=== PATIENT | female | born 2000 | race Caucasian/White ===

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

== ENCOUNTER 2021-06-06 17:16 | Emergency (ER) | payer OTHER ==
[2021-06-06 17:27] VITALS: RESP 18
[2021-06-06 18:09] LABS: Basophils % (A) 1 %; Eosinophils # (A) 0.1 k/uL (0-0.7); Eosinophils % (A) 1 %; HCT 36.4 % (34.0-46.0); HGB 12.5 gm/dL (11.4-16.0); Lymphocytes # (A) 1.5 k/uL (1.0-4.8); Lymphocytes % (A) 20 %; MCH 29.4 pg (25.0-35.0); MCHC 34.3 g/dL (31.0-37.0); MCV 85.7 fL (80.0-100.0); Mean Platelet Volume 7.3; Monocytes # (A) 0.3 k/uL (0-1.0); Monocytes % (A) 5 %; Neutrophils # (A) 5.2 k/uL (1.3-7.7); Neutrophils % (A) 72 %; Platelet Count 290 k/uL (150-450); RBC 4.25 m/uL (3.80-5.40); RDW 14.9 % (11.5-15.5); WBC 7.3 k/uL (4.0-11.0)
[2021-06-06 18:14] LABS: Appearance,Urine Clear (Clear); Bacteria,Urine Rare /hpf; Bilirubin,Urine Negative (Negative); Blood,Urine Moderate (Negative); Color,Urine Colorless; Glucose,Urine (UA) Negative (Negative); Ketones,Urine Negative (Negative); Leukocyte Esterase,Urine Moderate (Negative); Nitrite,Urine Negative (Negative); PH, Urine 6.5 (5.0-8.0); Protein,Urine Negative (Negative); RBC,Urine <1 /hpf (0-5); Urobilinogen,Urine <2.0 mg/dL (<2.0); WBC,Urine 3 /hpf (0-5)
[2021-06-06 18:18] LABS: ALT 9 U/L (4-34); AST 19 U/L (14-36); African American GFR (CKD) >90 (>60 ml/min/1.73 sqM); Albumin 4.3 g/dL (3.5-5.0); Alkaline Phosphatase 43 U/L (38-126); Anion Gap 11 mmol/L; Blood Urea Nitrogen 8 mg/dL (7-17); Calcium 9.6 mg/dL (8.4-10.2); Carbon Dioxide 22 mmol/L (22-30); Chloride 103 mmol/L (98-107); Glucose 111 mg/dL (74-99); Non-African American GFR(CKD) >90 (>60 ml/min/1.73 sqM); Potassium 3.5 mmol/L (3.5-5.1); Sodium 136 mmol/L (137-145); Total Bilirubin 0.5 mg/dL (0.2-1.3)
--- NOTE | 2021-06-06 18:19 | ED ---
Female Urogenital HPI - General Chief complaint: Vaginal Bleeding Stated complaint: Vaginal Bleeding, 7 wks Time Seen by Provider: 06/06/21 17:28 Source: patient, family Mode of arrival: ambulatory Limitations: no limitations - History of Present Illness Initial comments: Patient is a 21-year-old female, currently 8 weeks , presenting to the emergency Department with complaints of abdominal cramping for the last 4-5 days. She's also had some very mild spotting for the past 2 days. She had a positive home test about 2 weeks ago. This is her first , she will go see Dr. Galarza. She denies any recent fevers or chills, no chest pain or shortness of breath. She is complaining of some mild dysuria as well. Patient has no further complaints at this time. Her vital signs are stable. - Related Data Previous Rx's Medication Instructions Recorded EPINEPHrine (Auto Inject) [Epipen] 0.3 mg IM ONCE PRN #1 pen 11/27/18 Famotidine [Pepcid] 20 mg PO BID #28 tablet 11/27/18 diphenhydrAMINE [Benadryl] 50 mg PO QID PRN #20 capsule 11/27/18 predniSONE 50 mg PO DAILY #5 tab 11/27/18 EPINEPHrine [Epipen 2-Shan] 0.3 mg IM ONCE PRN #1 pack 05/14/19 predniSONE 50 mg PO DAILY #5 tab 05/14/19 methylPREDNISolone [Medrol Dose 4 mg PO DIRECTED #1 pack 11/03/19 Pack] Allergies Allergy/AdvReac Type Severity Reaction Status Date / Time peanut Allergy Severe Anaphylaxis Verified 06/06/21 17:24 shellfish derived Allergy Severe Anaphylaxis Verified 06/06/21 17:24 venom-honey bee Allergy Severe Anaphylaxis Verified 06/06/21 17:24 [bee venom (honey bee)] Iodinated Contrast Media Allergy Unknown Verified 06/06/21 17:24 [Iodinated Contrast- Oral and IV Dye] lactose AdvReac Intermediate Nausea & Verified 06/06/21 17:24 Vomiting & Diarrhea milk AdvReac Intermediate Nausea Verified 06/06/21 17:24 Review of Systems ROS Statement: Those systems with pertinent positive or pertinent negative responses have been documented in the HPI. ROS Other: All systems not noted in ROS Statement are negative. 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, life threatening allergies History of Any Multi-Drug Resistant Organisms: None Reported Past Surgical History: Adenoidectomy, Tonsillectomy Additional Past Surgical History / Comment(s): wisdom tooth removal Past Anesthesia/Blood Transfusion Reactions: No Reported Reaction Past Psychological History: Anxiety Smoking Status: Current every day smoker Past Alcohol Use History: None Reported Past Drug Use History: None Reported - Past Family History Mother Family Medical History: No Reported History Father Family Medical History: No Reported History General Exam - General Exam Comments Initial Comments: GENERAL: Patient is well-developed and well-nourished. Patient is nontoxic and in no acute distress. HEAD: Atraumatic, normocephalic. EYES: Pupils equal round and reactive to light, extraocular movements intact, sclera anicteric, conjunctiva are normal. Eyelids were unremarkable. ENT: Nares patent, oropharynx clear without exudates. Moist mucous membranes. NECK: Normal range of motion, supple without lymphadenopathy or JVD. LUNGS: Unlabored respirations. Breath sounds clear to auscultation bilaterally and equal. No wheezes rales or rhonchi. HEART: Regular rate and rhythm without murmurs, rubs or gallops. ABDOMEN: Soft, nontender, normoactive bowel sounds. No guarding, no rebound. No masses appreciated. : Deferred MUSCULOSKELETAL: Normal extremities with adequate strength and normal range of motion, no pitting or edema. No clubbing or cyanosis. NEUROLOGICAL: Patient is alert and oriented x 3. SKIN: Warm, Dry, normal turgor, no rashes or lesions noted. Limitations: no limitations Course Vital Signs 06/06/21 06/06/21 17:24 20:29 Temperature 98.5 F 98.6 F Pulse Rate 92 75 Respiratory 18 18 Rate Blood Pressure 103/68 102/62 O2 Sat by Pulse 99 98 Oximetry Medical Decision Making - Medical Decision Making Patient is a 21-year-old female, currently 7 weeks , first , presenting with abdominal cramping over the past 4-5 days and one day of vaginal spotting. Her vital signs are stable. She will be going to see Dr. Gaalrza as her MASTER BAKER. Labs show a normal white count, stable hemoglobin, hCG Quant is 60,000 and, urine shows some blood, no signs of infection. Ultrasound shows a living intrauterine fetus, tiny subchorionic fluid collection measures 4 mm in thickness. Patient's vital signs remained stable. Her blood type is O-, she did receive RhoGAM injection today. She is stable for discharge. She'll follow up with her MASTER BAKER. Return parameters were discussed with her and she verbalized understanding. Case discussed with Dr. Kumar. - Lab Data Result diagrams: 06/06/21 18:04 06/06/21 18:04 Lab Results 06/06/21 06/06/21 06/06/21 Range/Units 18:00 18:04 18:04 WBC 7.3 (4.0-11.0) k/uL RBC 4.25 (3.80-5.40) m/uL Hgb 12.5 (11.4-16.0) gm/dL Hct 36.4 (34.0-46.0) % MCV 85.7 (80.0-100.0) fL MCH 29.4 (25.0-35.0) pg MCHC 34.3 (31.0-37.0) g/dL RDW 14.9 (11.5-15.5) % Plt Count 290 (150-450) k/uL MPV 7.3 Neutrophils % 72 % Lymphocytes % 20 % Monocytes % 5 % Eosinophils % 1 % Basophils % 1 % Neutrophils # 5.2 (1.3-7.7) k/uL Lymphocytes # 1.5 (1.0-4.8) k/uL Monocytes # 0.3 (0-1.0) k/uL Eosinophils # 0.1 (0-0.7) k/uL Basophils # 0.0 (0-0.2) k/uL Sodium (137-145) mmol/L Potassium (3.5-5.1) mmol/L Chloride (98-107) mmol/L Carbon Dioxide (22-30) mmol/L Anion Gap mmol/L BUN (7-17) mg/dL Creatinine (0.52-1.04) mg/dL Est GFR (CKD-EPI)AfAm (>60 ml/min/1.73 sqM) Est GFR (CKD-EPI)NonAf (>60 ml/min/1.73 sqM) Glucose (74-99) mg/dL Calcium (8.4-10.2) mg/dL Total Bilirubin (0.2-1.3) mg/dL AST (14-36) U/L ALT (4-34) U/L Alkaline Phosphatase (38-126) U/L Total Protein (6.3-8.2) g/dL Albumin (3.5-5.0) g/dL HCG, Quant mIU/mL Urine Color Colorless Urine Appearance Clear (Clear) Urine pH 6.5 (5.0-8.0) Ur Specific [place] 1.000 L (1.001-1.035) Urine Protein Negative (Negative) Urine Glucose (UA) Negative (Negative) Urine Ketones Negative (Negative) Urine Blood Moderate H (Negative) Urine Nitrite Negative (Negative) Urine Bilirubin Negative (Negative) Urine Urobilinogen <2.0 (<2.0) mg/dL Ur Leukocyte Esterase Moderate H (Negative) Urine RBC <1 (0-5) /hpf Urine WBC 3 (0-5) /hpf Urine Bacteria Rare H (None) /hpf Blood Type O Negative Blood Type Recheck No Previous Record Bld Type Recheck Status [facility] ONLY 06/06/21 Range/Units 18:04 WBC (4.0-11.0) k/uL RBC (3.80-5.40) m/uL Hgb (11.4-16.0) gm/dL Hct (34.0-46.0) % MCV (80.0-100.0) fL MCH (25.0-35.0) pg MCHC (31.0-37.0) g/dL RDW (11.5-15.5) % Plt Count (150-450) k/uL MPV Neutrophils % % Lymphocytes % % Monocytes % % Eosinophils % % Basophils % % Neutrophils # (1.3-7.7) k/uL Lymphocytes # (1.0-4.8) k/uL Monocytes # (0-1.0) k/uL Eosinophils # (0-0.7) k/uL Basophils # (0-0.2) k/uL Sodium 136 L (137-145) mmol/L Potassium 3.5 (3.5-5.1) mmol/L Chloride 103 (98-107) mmol/L Carbon Dioxide 22 (22-30) mmol/L Anion Gap 11 mmol/L BUN 8 (7-17) mg/dL Creatinine 0.57 (0.52-1.04) mg/dL Est GFR (CKD-EPI)AfAm >90 (>60 ml/min/1.73 sqM) Est GFR (CKD-EPI)NonAf >90 (>60 ml/min/1.73 sqM) Glucose 111 H (74-99) mg/dL Calcium 9.6 (8.4-10.2) mg/dL Total Bilirubin 0.5 (0.2-1.3) mg/dL AST 19 (14-36) U/L ALT 9 (4-34) U/L Alkaline Phosphatase 43 (38-126) U/L Total Protein 7.0 (6.3-8.2) g/dL Albumin 4.3 (3.5-5.0) g/dL HCG, Quant 18352.5 mIU/mL Urine Color Urine Appearance (Clear) Urine pH (5.0-8.0) Ur Specific [place] (1.001-1.035) Urine Protein (Negative) Urine Glucose (UA) (Negative) Urine Ketones (Negative) Urine Blood (Negative) Urine Nitrite (Negative) Urine Bilirubin (Negative) Urine Urobilinogen (<2.0) mg/dL Ur Leukocyte Esterase (Negative) Urine RBC (0-5) /hpf Urine WBC (0-5) /hpf Urine Bacteria (None) /hpf Blood Type Blood Type Recheck Bld Type Recheck Status Disposition Clinical Impression: Subchorionic hemorrhage in first trimester Disposition: HOME SELF-CARE Condition: Stable Instructions (If sedation given, give patient instructions): Subchorionic Hemorrhage (ED) Additional Instructions: Please return to the Emergency Department if symptoms worsen or any other concerns. Please follow up with your MASTER BAKER. Recommend pelvic rest until your follow-up, no intercourse, no heavy lifting. Is patient prescribed a controlled substance at d/c from ED?: No Referrals: Chetan Galvez DO [Primary Care Provider] - 1-2 days Keshav Galarza DO [Doctor of Osteopathic Medicine] - 1-2 days Time of Disposition: 19:31
--- NOTE | 2021-06-06 19:04 | US ---
EXAMINATION TYPE: Transabdominal DATE OF EXAM: 06/06/2021 6:40 PM COMPARISON: NONE CLINICAL HISTORY: 7 wks preg, cramping/spotting. Ec patient stated 2 days ago had pink tinged small a mount of vaginal bleeding and cramping and today noted small amount of brown vaginal discharge; ; patient stated she vapes EXAM PERFORMED: Transabdominal (TA) EXAM MEASUREMENTS: GESTATIONAL AGE / DATING Physician Established: Not yet established Dates by LMP: (7 weeks/2 days) EDC: 01/21/2022 Dates by First Scan: No previous. Dates by Current Scan for: (5 weeks/6 days) by CRL measure EDC: 01/31/2022 MATERNAL ANATOMY Uterus: 9.3 x 5.9 x 4.5cm Right Ovary: 2.6 x 2.8 x 1.8cm Left Ovary: 1.1 x 1.6 x 2.5cm Post CDS / Adnexa: wnl Presence of free fluid: no Presence of corpus luteal cyst: in right ovary = 2.1 x 1.8 x 1.4cm Presence of subchorionic bleed: small hypoechoic area seen lateral to gestational sac = 0.8 x 0.4 x 1 .4cm GESTATION / SURVEY CRL: 0.3cm (5 weeks/6 day Yolk Sac (normal less than 6mm): 2.9mm Heart Rate: 104 bpm Rhythm: Normal IUP: Single Date of LMP: 04/16/2021 Beta HcG (if available): NA Single, early, live IUP = 5 weeks/6 days by CRL measure; EDC: 01/31/2022; [id number]; small subchorioni c bleed also noted. IMPRESSION: Living intrauterine fetus. Tiny subchorionic fluid collection measures 4 mm in thickness and could be minimal perigestational hemorrhage.
[2021-06-06 19:07] LABS: HCG,Quantitative Serum 60984.5 mIU/mL
[2021-06-06] MEDS ORDERED: Rhogam IMMUNE GLOBULIN 1,500 UNIT/1 ML IM ONE (19:08)
[2021-06-06 20:29] VITALS: BP 102/62; PULSE 75; TEMP 98.6
== END 2021-06-06 21:25 | disposition home or self-care (01) ==
LOC: EC 17:16
DX: O20.8 Other hemorrhage in early pregnancy (principal); O99.511 Diseases of the respiratory system complicating pregnancy, first trimester; J45.909 Unspecified asthma, uncomplicated; O99.331 Smoking (tobacco) complicating pregnancy, first trimester; F17.200 Nicotine dependence, unspecified, uncomplicated; Z79.52 Long term (current) use of systemic steroids; Z79.899 Other long term (current) drug therapy; Z3A.08 8 weeks gestation of pregnancy
CPT/HCPCS: 36415; 86900; 86901; 80053; 85025; 86850; 81001; 84702; 76801; 96372; 99284; J2790

== ENCOUNTER → 2021-06-15 | Outpatient (CLI) | payer OTHER ==
--- NOTE | 2021-06-15 10:58 | US ---
EXAMINATION TYPE: Transabdominal DATE OF EXAM: 06/15/2021 10:40 AM COMPARISON: NONE CLINICAL HISTORY: O46.91 bleeding. no more bleeding, early OB, was seen in EC 9 days prior and saw po ssible subchorionic bleed EXAM PERFORMED: OBTA EXAM MEASUREMENTS: GESTATIONAL AGE / DATING Physician Established: Not yet established Dates by LMP: ( 6 weeks/0 days) EDC: 01/21/2022 Dates by First Scan: (7 weeks/2 days) EDC: 01/30/2022 Dates by Current Scan for: (7 weeks/2 days) EDC: 01/30/2022 MATERNAL ANATOMY Uterus: 11.3 x 6.2 x 3.8cm Right Ovary: 3.1 x 1.9 x 1.5cm Left Ovary: 2.5 x 1.5 x 1.8cm Post CDS / Adnexa: wnl Presence of free fluid: no Presence of corpus luteal cyst: not seen Presence of subchorionic bleed: not seen GESTATION / SURVEY CRL: 1.1cm (7 weeks/2 days) MSD: wnl Yolk Sac (normal less than 6mm): 0.2cm Heart Rate: 134bpm Rhythm: Normal IUP: Viable IUP Date of LMP: 04/16/2021 IMPRESSION: Single viable intrauterine .
[2021-06-15 11:03] LABS: HCT 41.1 % (34.0-46.0); HGB 13.7 gm/dL (11.4-16.0); MCH 28.7 pg (25.0-35.0); MCHC 33.4 g/dL (31.0-37.0); MCV 85.8 fL (80.0-100.0); Mean Platelet Volume 7.4; Platelet Count 296 k/uL (150-450); RBC 4.79 m/uL (3.80-5.40); RDW 13.9 % (11.5-15.5); WBC 6.4 k/uL (4.0-11.0)
[2021-06-15 11:17] LABS: African American GFR (CKD) >90 (>60 ml/min/1.73 sqM); Glucose 82 mg/dL (74-99); Non-African American GFR(CKD) >90 (>60 ml/min/1.73 sqM)
[2021-06-15 18:07] LABS: Hepatitis B Surface Antigen Non-Reactive (Non-Reactive)
[2021-06-15 19:57] LABS: HIV 2 AB Non-Reactive (Non-Reactive); HIV AB P24 Non-Reactive (Non-Reactive); HIV P24 AG Non-Reactive (Non-Reactive)
[2021-06-16 06:19] LABS: Toxoplasma Antibody (IgG) <3.0 IU/mL (<7.2); Toxoplasma Antibody (IgM) <3.0 AU/mL (<8.0)
== END | disposition home or self-care (01) ==
LOC: RADUSWWP 10:20
PROVIDERS: ATTEND Obstetrics & Gynecology
DX: O46.91 Antepartum hemorrhage, unspecified, first trimester (principal)
CPT/HCPCS: 36415; 76801; 82565; 82947; 85027; 86762; 86777; 86778; 86780; 86850; 86870; 86880; 86900; 86901; 87340; 87390

== ENCOUNTER 2021-07-20 14:06 | Emergency (ER) | payer OTHER ==
[2021-07-20 14:49] VITALS: BP 125/86; PULSE 96; RESP 20; TEMP 98.5
[2021-07-20 15:11] LABS: Appearance,Urine Clear (Clear); Bacteria,Urine Rare /hpf; Bilirubin,Urine Negative (Negative); Blood,Urine Negative (Negative); Color,Urine Colorless; Glucose,Urine (UA) Negative (Negative); Ketones,Urine Negative (Negative); Leukocyte Esterase,Urine Trace (Negative); Nitrite,Urine Negative (Negative); PH, Urine 6.5 (5.0-8.0); Protein,Urine Negative (Negative); RBC,Urine <1 /hpf (0-5); Specific Gravity,Urine 1.002 (1.001-1.035); Squamous Epithelial Cell,Urine 5 /hpf (0-4); Urobilinogen,Urine <2.0 mg/dL (<2.0); WBC,Urine 2 /hpf (0-5)
--- NOTE | 2021-07-20 18:52 | US ---
EXAMINATION TYPE: Transabdominal DATE OF EXAM: 07/20/2021 COMPARISON: US CLINICAL HISTORY: vaginal cramping. Cramping. . EXAM PERFORMED: Transabdominal (TA) EXAM MEASUREMENTS: GESTATIONAL AGE / DATING Physician Established: (12 weeks/2 days) EDC: 01/30/2022 Dates by LMP: (13 weeks/4 days) EDC: 01/21/2022 Dates by First Scan: (12 weeks/2 days) EDC: 01/30/2022 Dates by Current Scan for: (12 weeks/5 days) EDC: 01/27/2022 MATERNAL ANATOMY Uterus: 13.8 x 9.1 x 6.8 cm. Anteverted. Right Ovary: 3.3 x 2.6 x 1.6 cm. Left Ovary: Not visualized. Post CDS / Adnexa: Appear wnl. Presence of free fluid: None seen. Presence of corpus luteal cyst: Not seen. Presence of subchorionic bleed: Hypoechoic area seen inferior to the gestational sac: 0.5 x 3.2 x 1.9 cm. Complex area seen adjacent to the gestational sac on the left: 1.1 x 0.9 x 1.2 cm. GESTATION / SURVEY CRL: 6.35 cm. (12 weeks/5 days) Yolk Sac (normal less than 6mm): 6.2 mm. Measures slightly enlarged. Heart Rate: 158 bpm Rhythm: Normal IUP: Viable IUP Nuchal Translucency 10-14wks (normal less than 3mm): Not clearly visualized. Date of LMP: 04/16/2021 Beta HcG (if available): Not available. IMPRESSION: Single live intrauterine at estimated 12 weeks 5 days gestational age. Small subchorionic hemorrhage. Otherwise no acute abnormality.
--- NOTE | 2021-07-20 20:02 | ED ---
General Adult HPI - General Chief complaint: Abdominal Pain Stated complaint: 13 Weeks exposed to RSV and HFM Time Seen by Provider: 07/20/21 16:28 Source: patient Mode of arrival: ambulatory Limitations: no limitations - History of Present Illness Initial comments: 21-year-old previously healthy female presents emergency room with reported cou gh and congestion for the past several weeks. Patient is currently 13 weeks . 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 She called her OB did tell him this and he requested that she come into the emergency department for Parvo B-[address] Galarza. She has had 2 ultrasounds. She did have some bleeding in early for which she had an ultrasound performed and showed a subchorionic hemorrhage. This is her first . She admits to some current suprapubic abdominal pain however no active bleeding. Has had some mild white discharge without odor. Denies concern for sexually transmitted infections. Patient is O- and was given RhoGAM on the . States she had a repeat ultrasound which showed a normal . She denies any chest pain. Has not been taking any medications for her cold. Denies any fevers. Other alleviating, precipitating or modifying factors - Related Data Home Medications Medication Instructions Recorded Confirmed No Known Home Medications 07/20/21 07/20/21 Allergies Allergy/AdvReac Type Severity Reaction Status Date / Time peanut Allergy Severe Anaphylaxis Verified 08/10/21 19:58 shellfish derived Allergy Severe Anaphylaxis Verified 08/10/21 19:58 venom-honey bee Allergy Severe Anaphylaxis Verified 08/10/21 19:58 [bee venom (honey bee)] Iodinated Contrast Media Allergy Unknown Verified 08/10/21 19:58 [Iodinated Contrast- Oral and IV Dye] lactose AdvReac Intermediate Nausea & Verified 08/10/21 19:58 Vomiting & Diarrhea milk AdvReac Intermediate Nausea Verified 08/10/21 19:58 Review of Systems ROS Statement: Those systems with pertinent positive or pertinent negative responses have been documented in the HPI. ROS Other: All systems not noted in ROS Statement are negative. 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, life threatening allergies History of Any Multi-Drug Resistant Organisms: None Reported Past Surgical History: Adenoidectomy, Tonsillectomy Additional Past Surgical History / Comment(s): wisdom tooth removal Past Anesthesia/Blood Transfusion Reactions: No Reported Reaction Past Psychological History: Anxiety Smoking Status: Current every day smoker Past Alcohol Use History: None Reported Past Drug Use History: None Reported - Past Family History Mother Family Medical History: No Reported History Father Family Medical History: No Reported History General Exam Limitations: no limitations General appearance: alert, in no apparent distress Head exam: Present: atraumatic, normocephalic, normal inspection Eye exam: Present: normal appearance, PERRL, EOMI. Absent: scleral icterus, conjunctival injection, periorbital swelling ENT exam: Present: normal exam, mucous membranes moist Neck exam: Present: normal inspection. Absent: tenderness, meningismus, lymphadenopathy Respiratory exam: Present: normal lung sounds bilaterally. Absent: respiratory distress, wheezes, rales, rhonchi, stridor Cardiovascular Exam: Present: regular rate, normal rhythm, normal heart sounds. Absent: systolic murmur, diastolic murmur, rubs, gallop, clicks GI/Abdominal exam: Present: soft, normal bowel sounds. Absent: distended, tenderness, guarding, rebound, rigid External exam: Present: normal external exam Speculum exam: Present: normal speculum exam. Absent: vaginal bleeding Extremities exam: Present: normal inspection, full ROM, normal capillary refill. Absent: tenderness, pedal edema, joint swelling, calf tenderness Back exam: Present: normal inspection Neurological exam: Present: alert, oriented X3, CN II-XII intact Psychiatric exam: Present: normal affect, normal mood Skin exam: Present: warm, dry, intact, normal color. Absent: rash Course Vital Signs 07/20/21 14:46 Temperature 98.5 F Pulse Rate 96 Respiratory 20 Rate Blood Pressure 125/86 O2 Sat by Pulse 99 Oximetry Medical Decision Making - Medical Decision Making Upon arrival patient was placed into room 33. Thorough history and physical exam was performed. Patient was swabbed for Covid which is negative. She does give a urine sample which is negative for infection at this time. ultrasound was performed which demonstrates a 12 week 5 day with a adjacent subchorionic hemorrhage which appears stable. Pelvic exam is performed which does not demonstrate any vaginal bleeding. Mild white vaginal discharge not consistent with yeast. Patient does have parvo B19 titers ordered as this was requested by her BRASS POURER. She will be discharged home and is to follow-up with her BR[employer] P[employer]ER. Return to the emergency room for any worsening symptoms. Patient was discharged home in stable condition - Lab Data Lab Results 07/20/21 07/20/21 07/20/21 Range/Units 14:52 14:52 17:30 Urine Color Colorless Urine Appearance Clear (Clear) Urine pH 6.5 (5.0-8.0) Ur Specific [place] 1.002 (1.001-1.035) Urine Protein Negative (Negative) Urine Glucose (UA) Negative (Negative) Urine Ketones Negative (Negative) Urine Blood Negative (Negative) Urine Nitrite Negative (Negative) Urine Bilirubin Negative (Negative) Urine Urobilinogen <2.0 (<2.0) mg/dL Ur Leukocyte Esterase Trace H (Negative) Urine RBC <1 (0-5) /hpf Urine WBC 2 (0-5) /hpf Ur Squamous Epith Cells 5 H (0-4) /hpf Urine Bacteria Rare H (None) /hpf Coronavirus (PCR) Not Detected (Not Detectd) Parvovirus B19 IgG Ab 3.61 H (<=0.90) INDEX Parvovirus B19 IgM Ab 0.77 (<=0.90) INDEX Disposition Clinical Impression: Pelvic pain, First trimester Disposition: HOME SELF-CARE Condition: Stable Instructions (If sedation given, give patient instructions): First Trimester (ED) Additional Instructions: Please follow with Dr. Galarza for your test results. Return to the ED for any new or worsening symptoms. you may take benadryl or claritin for your symptoms. Is patient prescribed a controlled substance at d/c from ED?: No Referrals: Chetan Galvez DO [Primary Care Provider] - 1-2 days Keshav Galarza DO [Doctor of Osteopathic Medicine] - 1-2 days Time of Disposition: 20:02
[2021-07-23 10:30] LABS: Parvovirus B-19 IgG Antibodies 3.61 INDEX (<=0.90)
[2021-07-27 11:26] LABS: Parvovirus B-19 IgM Antibodies 0.77 INDEX (<=0.90)
== END 2021-07-20 20:06 | disposition home or self-care (01) ==
LOC: EC 14:06
DX: O26.891 Other specified pregnancy related conditions, first trimester (principal); O99.511 Diseases of the respiratory system complicating pregnancy, first trimester; R05.9 Cough, unspecified; O20.8 Other hemorrhage in early pregnancy; J45.909 Unspecified asthma, uncomplicated; F41.9 Anxiety disorder, unspecified; F17.200 Nicotine dependence, unspecified, uncomplicated; Z3A.12 12 weeks gestation of pregnancy; Z91.010 Allergy to peanuts; Z91.011 Allergy to milk products; Z91.041 Radiographic dye allergy status; Z90.89 Acquired absence of other organs; Z20.822 Contact with and (suspected) exposure to COVID-19
CPT/HCPCS: 36415; 76801; 81001; 86747; 87635; 99284

== ENCOUNTER 2021-08-10 18:02 | Emergency (ER) | payer OTHER ==
[2021-08-10] MEDS ORDERED: ACETAMINOPHEN TAB 325 MG TAB PO STA (21:40)
--- NOTE | 2021-08-10 21:55 | ED ---
URI HPI - General Chief Complaint: ENT Stated Complaint: Sore Throat, 15 wks Preg Time Seen by Provider: 08/10/21 21:23 Source: patient, family Mode of arrival: ambulatory Limitations: no limitations - History of Present Illness MD Complaint: cough, sore throat, rhinorrhea, nasal congestion Onset/Timin -: week(s) Severity: moderate Consistency: constant Improves With: nothing Worsens With: nothing Context: sick contacts Associated Symptoms: nasal congestion, sore throat, cough, ear pain Treatments Prior to Arrival: none - Related Data Home Medications Medication Instructions Recorded Confirmed No Known Home Medications 07/20/21 07/20/21 Allergies Allergy/AdvReac Type Severity Reaction Status Date / Time peanut Allergy Severe Anaphylaxis Verified 08/10/21 19:58 shellfish derived Allergy Severe Anaphylaxis Verified 08/10/21 19:58 venom-honey bee Allergy Severe Anaphylaxis Verified 08/10/21 19:58 [bee venom (honey bee)] Iodinated Contrast Media Allergy Unknown Verified 08/10/21 19:58 [Iodinated Contrast- Oral and IV Dye] lactose AdvReac Intermediate Nausea & Verified 08/10/21 19:58 Vomiting & Diarrhea milk AdvReac Intermediate Nausea Verified 08/10/21 19:58 Review of Systems ROS Statement: Those systems with pertinent positive or pertinent negative responses have been documented in the HPI. ROS Other: All systems not noted in ROS Statement are negative. Constitutional: Denies: fever, chills Eyes: Denies: eye pain, vision change ENT: Reports: ear pain, throat pain, congestion. Denies: hearing loss Respiratory: Reports: cough. Denies: dyspnea, wheezes, hemoptysis Cardiovascular: Denies: chest pain Gastrointestinal: Denies: abdominal pain, vomiting, diarrhea Genitourinary: Denies: dysuria, hematuria, discharge Musculoskeletal: Denies: back pain Skin: Denies: rash Neurological: Reports: headache 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, life threatening allergies History of Any Multi-Drug Resistant Organisms: None Reported Past Surgical History: Adenoidectomy, Tonsillectomy Additional Past Surgical History / Comment(s): wisdom tooth removal Past Anesthesia/Blood Transfusion Reactions: No Reported Reaction Past Psychological History: Anxiety Smoking Status: Current every day smoker Past Alcohol Use History: None Reported Past Drug Use History: None Reported - Past Family History Mother Family Medical History: No Reported History Father Family Medical History: No Reported History General Exam Limitations: no limitations General appearance: alert, in no apparent distress Head exam: Present: atraumatic, normocephalic Eye exam: Present: normal appearance. Absent: scleral icterus, conjunctival injection ENT exam: Present: mucous membranes moist, TM's normal bilaterally, normal external ear exam, other (Cobblestoning of the pharynx) Neck exam: Present: normal inspection, full ROM, lymphadenopathy. Absent: tenderness, meningismus Respiratory exam: Present: normal lung sounds bilaterally. Absent: respiratory distress, wheezes, rales, rhonchi, stridor Cardiovascular Exam: Present: regular rate, normal rhythm, normal heart sounds. Absent: systolic murmur, diastolic murmur, rubs, gallop GI/Abdominal exam: Present: soft. Absent: distended, tenderness, guarding, rebound, rigid, mass Extremities exam: Present: normal inspection, normal capillary refill. Absent: pedal edema, calf tenderness Back exam: Present: normal inspection. Absent: CVA tenderness (R), CVA tenderness (L) Skin exam: Present: warm, dry, intact, normal color. Absent: rash Course Vital Signs 08/10/21 08/11/21 19:55 00:21 Temperature 98.2 F 98.9 F Pulse Rate 81 89 Respiratory 24 22 Rate Blood Pressure 118/67 134/76 O2 Sat by Pulse 100 96 Oximetry Medical Decision Making - Lab Data Lab Results 08/10/21 08/10/21 Range/Units 21:28 21:28 Coronavirus (PCR) Not Detected (Not Detectd) Group A Strep Rapid Negative (Negative) Disposition Clinical Impression: Pharyngitis Disposition: HOME SELF-CARE Condition: Good Is patient prescribed a controlled substance at d/c from ED?: No Referrals: Chetan Glavez DO [Primary Care Provider] - 1-2 days
[2021-08-11 00:23] VITALS: BP 134/76; PULSE 89; RESP 22; TEMP 98.9
== END 2021-08-11 00:21 | disposition home or self-care (01) ==
LOC: EC 18:02
DX: O99.511 Diseases of the respiratory system complicating pregnancy, first trimester (principal); J02.9 Acute pharyngitis, unspecified; Z20.822 Contact with and (suspected) exposure to COVID-19; J45.909 Unspecified asthma, uncomplicated; O99.332 Smoking (tobacco) complicating pregnancy, second trimester; F17.200 Nicotine dependence, unspecified, uncomplicated; Z3A.15 15 weeks gestation of pregnancy
CPT/HCPCS: 87081; 87430; 87635; 99283

== ENCOUNTER 2021-11-11 18:10 | Outpatient (CLI) | payer OTHER ==
[2021-11-11 19:07] LABS: Appearance,Urine Cloudy (Clear); Bacteria,Urine Occasional /hpf; Bilirubin,Urine Negative (Negative); Blood,Urine Negative (Negative); Budding Yeast,Urine Few /hpf; Color,Urine Light Yellow; Glucose,Urine (UA) Negative (Negative); Ketones,Urine Negative (Negative); Leukocyte Esterase,Urine Moderate (Negative); Mucus,Urine Rare /hpf; Nitrite,Urine Negative (Negative); PH, Urine 7.5 (5.0-8.0); Protein,Urine Negative (Negative); RBC,Urine 1 /hpf (0-5); Specific Gravity,Urine 1.009 (1.001-1.035); Squamous Epithelial Cell,Urine 9 /hpf (0-4); Urobilinogen,Urine <2.0 mg/dL (<2.0); WBC,Urine 4 /hpf (0-5)
[2021-11-11 21:06] VITALS: BP 116/69; PULSE 90; RESP 16; TEMP 98
--- NOTE | 2021-11-12 07:09 | P.MSEPDOC ---
Presenting Problems - Arrival Data Date of Arrival on Unit: 11/11/21 Time of Arrival on Unit: 18:10 Mode of Transport: Ambulatory - Complaint OB-Reason for Admission/Chief Complaint: Pain Comment: Lower back pain. Medical History - Information : 1 Para: 0 Term: 0 : 0 Abortions: Spontaneous or Elective: 0 Number of Living Children: 0 - Gestational Age Gestational Age by FEDERICO (wks/days): 29 Weeks and 1 Days Review of Systems - Review of Systems Constitutional: No problems Breast: No problems ENT: Nasal congestion Cardiovascular: No problems Respiratory: No problems Gastrointestinal: No problems Genitourinary: No problems Musculoskeletal: No problems Neurological: No problems Skin: No problems Vital Signs - Temperature Temperature: 98.0 F Temperature Source: Oral - Pulse Pulse Oximetery Pulse Rate: 90 Pulse Assessment Method: Pulse Oximetry - Respirations Respiratory Rate: 16 Oxygen Delivery Method: Room Air O2 Sat by Pulse Oximetry: 98 - Blood Pressure Right Arm Blood Pressure: 116/69 Blood Pressure Mean: 84 Blood Pressure Source: Automatic Cuff Medical Screen Scoring - Cervical Exam Membranes: Intact - Uterine Contractions Intensity: Absent Resting: Soft to palpation - Assessment - Baby A Baseline FHR: 140 Heart Rate - NICHD Category: Category II (Indeterminate) NST: Reactive Physician Notification - Physician Notified Physician Notified Date: 11/11/21 Physician Notified Time: 20:34 Physician: Gaviota Watson Order Received: Yes - Notification Comment Comment: 11/11/21 @ 1929: RN spoke with Dr. Watson regarding pt's complaint of lower back pain for 1.5months. Pt states that her pain was increasing today to the point of needing to be seen in triage. Pt also states that she had nausea and vomiting today. UA does not indicate a definite infection at this time. FHR NST reactive with intermittent variable consistent with GA. RN to order UA culture to assess for infection. DC pt home with follow up instructions. 11/11/21 @ 1945: Upon going over DC instructions, pt stated that she has had a fever of 101F in the last couple days and has not been "feeling the best". Pt states that her S/O also had a cold and a fever of 104F. RN called Dr. Watson, orders received to COVID and FLU swab patient. RN to call Dr. Watson if swab is positive. 11/11/21 @ 2033: RN notified Dr. Watson of pt's positive COVID swab. Pt declines the antibody infusion at this time. Pt may DC home with follow up on 11/25 as previously scheduled with Dr. Webb. Pt to quarantine per CDC guidelines. Pt to rest and drink plenty of fluids, and to call office if symptoms are worsening and she wants the infusion. Maternal Triage Index - Maternal Triage Index Presenting for scheduled procedure w/no complaint: No - Stat/Priority 1 Stat Priority 1: No - Urgent/Priority 2 Urgent Priority 2: No - Prompt/Priority 3 Prompt Priority 3: No - Non-Urgent/Priority 4 Non-Urgent Priority 4: Yes Criteria Met for Priority 4: Lower back pain, nausea Disposition - Disposition OB Disposition: Discharge to home Discharge Date: 11/11/21 Discharge Time: 20:40 I agree with the RN Medical Screening Exam: Yes Case reviewed; plan agreed upon as documented in EMR&OBIX.: Yes Diagnosis: COVID-19
== END 2021-11-11 20:40 | disposition home or self-care (01) ==
LOC: FBPOP 18:10
PROVIDERS: ATTEND Obstetrics & Gynecology
DX: O98.513 Other viral diseases complicating pregnancy, third trimester (principal); O26.893 Other specified pregnancy related conditions, third trimester; U07.1 COVID-19; M54.50 Low back pain, unspecified; Z3A.29 29 weeks gestation of pregnancy; Z91.010 Allergy to peanuts; Z91.013 Allergy to seafood; Z91.011 Allergy to milk products; Z91.030 Bee allergy status; Z91.041 Radiographic dye allergy status
CPT/HCPCS: 59025; 81001; 87502; 87635; G0463; 87086; 99213

== ENCOUNTER 2021-11-29 17:30 | Outpatient (CLI) | payer OTHER ==
[2021-11-29 19:11] VITALS: BP 97/55; PULSE 87; RESP 16; TEMP 98.7
--- NOTE | 2021-12-03 08:10 | P.MSEPDOC ---
Presenting Problems - Arrival Data Date of Arrival on Unit: 11/29/21 Time of Arrival on Unit: 17:37 Mode of Transport: Ambulatory - Complaint OB-Reason for Admission/Chief Complaint: Headache, Other Comment: pt arrived c/o a migrane earlier today and some cramping. pt states she had her baby shower yesterday and thinks she over did it. pt also states she was here last week and had a positive FFN. so dr nichols has her on pelvic rest Medical History - Information : 1 Para: 0 Term: 0 : 0 Abortions: Spontaneous or Elective: 0 Number of Living Children: 0 - Gestational Age Gestational Age by FEDERICO (wks/days): 31 Weeks and 2 Days Review of Systems - Review of Systems Constitutional: No problems Breast: No problems ENT: No problems Cardiovascular: No problems Respiratory: No problems Gastrointestinal: No problems Genitourinary: No problems Musculoskeletal: No problems Neurological: No problems Skin: No problems Vital Signs - Temperature Temperature: 98.7 F Temperature Source: Oral - Pulse Right Brachial Pulse Rate: 87 Pulse Assessment Method: Automatic Cuff - Respirations Respiratory Rate: 16 Oxygen Delivery Method: Room Air - Blood Pressure Right Arm Blood Pressure: 97/55 Blood Pressure Mean: 69 Blood Pressure Source: Automatic Cuff Medical Screen Scoring - Cervical Exam Dilation (cm): 1 Effacement (%): 50 Station: -1 Membranes: Intact - Uterine Contractions Resting: Soft to palpation - Assessment - Baby A Baseline FHR: 130 Heart Rate - NICHD Category: Category I (Normal) Physician Notification - Physician Notified Physician Notified Date: 11/29/21 Physician Notified Time: 18:50 Physician: DR DICKEY New Order Received: Yes - Notification Comment Comment: MAY DISCHARGE TO HOME Maternal Triage Index - Non-Urgent/Priority 4 Non-Urgent Priority 4: Yes Criteria Met for Priority 4: pt 31 2/7 weeks c/o migrane h/a and mild cramping. v/s good. reactive NST Cervix 1 cm 50% effaced -1 station. 2 contractions noted in 1 hour time frame. pt had stated her h/a felt better Disposition - Disposition OB Disposition: Discharge to home Discharge Date: 11/29/21 Discharge Time: 19:00 I agree with the RN Medical Screening Exam: Yes Case reviewed; plan agreed upon as documented in EMR&OBIX.: Yes Diagnosis: HEADACHE, UNSPECIFIED
== END 2021-11-29 19:00 | disposition home or self-care (01) ==
LOC: FBPOP 17:30
PROVIDERS: ATTEND Obstetrics & Gynecology
DX: O26.893 Other specified pregnancy related conditions, third trimester (principal); R51.9 Headache, unspecified; Z3A.31 31 weeks gestation of pregnancy; Z91.018 Allergy to other foods; Z91.030 Bee allergy status; Z91.041 Radiographic dye allergy status; Z91.013 Allergy to seafood; Z91.011 Allergy to milk products
CPT/HCPCS: 59025; G0463; 99213

== ENCOUNTER 2022-01-17 20:14 | Outpatient (CLI) | payer OTHER ==
[2022-01-17 21:11] VITALS: BP 109/72; PULSE 83; RESP 16; TEMP 96.9
--- NOTE | 2022-01-18 09:17 | P.MSEPDOC ---
Presenting Problems - Arrival Data Date of Arrival on Unit: 01/17/22 Time of Arrival on Unit: 20:14 Mode of Transport: Ambulatory - Complaint OB-Reason for Admission/Chief Complaint: Possible Onset of Labor, Pain Comment: Pt presents to triage with c/o contx that started today, approx 3-7 min apart and upper L sided abdominal pain wrapping around to back which pt is rating 10/10 Medical History - Information : 1 Para: 0 Term: 0 : 0 Abortions: Spontaneous or Elective: 0 Number of Living Children: 0 - Gestational Age Gestational Age by FEDERICO (wks/days): 38 Weeks and 3 Days - History Complications: GBS+ Review of Systems - Review of Systems Constitutional: No problems Breast: No problems ENT: No problems Cardiovascular: No problems Respiratory: No problems Gastrointestinal: No problems Genitourinary: No problems Musculoskeletal: No problems Neurological: No problems Skin: No problems Vital Signs - Temperature Temperature: 96.9 F Temperature Source: Temporal Artery Scan - Pulse Pulse Oximetery Pulse Rate: 83 Pulse Assessment Method: Automatic Cuff - Respirations Respiratory Rate: 16 Oxygen Delivery Method: Room Air O2 Sat by Pulse Oximetry: 99 - Blood Pressure Right Arm Blood Pressure: 109/72 Blood Pressure Mean: 84 Blood Pressure Source: Automatic Cuff Medical Screen Scoring - Cervical Exam Dilation (cm): 3 Effacement (%): 70 Station: -2 Membranes: Intact - Uterine Contractions Intensity: Mild Resting: Soft to palpation - Assessment - Baby A Baseline FHR: 135 Heart Rate - NICHD Category: Category I (Normal) NST: Reactive Physician Notification - Physician Notified Physician Notified Date: 01/17/22 Physician Notified Time: 20:49 Physician: Pablo Webb New Order Received: Yes - Notification Comment Comment: Dr. Webb called and updated re: pt presents to triage with c/o contx that. started today, approx 3-7 min apart and upper L sided abdominal pain wrapping around to back which pt is rating 10/10, abdominal pain is what brought pt into triage per pt, clean catch urine sample obtained and not sent, urine clear in appearance, SVE, FHTs, irreg contx pattern and scheduled IOL for . Orders received to d/c pt home and keep scheduled IOL for Maternal Triage Index - Maternal Triage Index Presenting for scheduled procedure w/no complaint: No - Stat/Priority 1 Stat Priority 1: No - Urgent/Priority 2 Urgent Priority 2: Yes Provider Notified: Pablo Webb Provider Notified Time: 20:49 Criteria Met for Priority 2: Severe pain unrelated to contx >7 Disposition - Disposition OB Disposition: Discharge to home Discharge Date: 01/17/22 Discharge Time: 20:55 I agree with the RN Medical Screening Exam: Yes Case reviewed; plan agreed upon as documented in EMR&OBIX.: Yes Diagnosis: FALSE LABOR AT OR AFTER 37 COMPLETED WEEKS OF GESTATION
== END 2022-01-17 20:55 | disposition home or self-care (01) ==
LOC: FBPOP 20:14
PROVIDERS: ATTEND Obstetrics & Gynecology
DX: O47.1 False labor at or after 37 completed weeks of gestation (principal); Z3A.38 38 weeks gestation of pregnancy; Z91.013 Allergy to seafood; Z91.030 Bee allergy status; Z91.041 Radiographic dye allergy status; Z91.011 Allergy to milk products
CPT/HCPCS: 59025; G0463; 99213

== ENCOUNTER 2022-01-19 14:58 | Outpatient (CLI) | payer OTHER ==
[2022-01-19 15:39] VITALS: BP 124/68; PULSE 93; RESP 16; TEMP 97.5
--- NOTE | 2022-01-19 18:50 | P.MSEPDOC ---
Presenting Problems - Arrival Data Date of Arrival on Unit: 01/19/22 Time of Arrival on Unit: 14:58 Mode of Transport: Ambulatory - Complaint OB-Reason for Admission/Chief Complaint: Rule Out SROM Medical History - Information : 1 Para: 0 Number of Living Children: 0 - Gestational Age Gestational Age by FEDERICO (wks/days): 38 Weeks and 5 Days - History Complications: GBS+ Review of Systems - Review of Systems Constitutional: No problems Breast: No problems ENT: No problems Cardiovascular: No problems Respiratory: No problems Gastrointestinal: No problems Genitourinary: No problems Musculoskeletal: No problems Neurological: No problems Skin: No problems Vital Signs - Temperature Temperature: 97.5 F Temperature Source: Temporal Artery Scan - Pulse Right Sitting Brachial Pulse Rate: 93 Pulse Assessment Method: Automatic Cuff - Respirations Respiratory Rate: 16 Oxygen Delivery Method: Room Air O2 Sat by Pulse Oximetry: 100 - Blood Pressure Right Arm Sitting Blood Pressure: 124/68 Blood Pressure Mean: 86 Blood Pressure Source: Automatic Cuff Medical Screen Scoring - Cervical Exam Dilation (cm): 3 Effacement (%): 70 Station: -2 Membranes: Intact - Uterine Contractions Frequency From (mins): 0 Frequency To (mins): 0 Intensity: Mild - Assessment - Baby A Baseline FHR: 130 Heart Rate - NICHD Category: Category I (Normal) Physician Notification - Physician Notified Physician Notified Date: 01/19/22 Physician Notified Time: 15:24 Physician: Pablo Webb New Order Received: Yes - Notification Comment Comment: discharge pt home Maternal Triage Index - Maternal Triage Index Presenting for scheduled procedure w/no complaint: No - Stat/Priority 1 Stat Priority 1: No - Urgent/Priority 2 Urgent Priority 2: No - Prompt/Priority 3 Prompt Priority 3: No - Non-Urgent/Priority 4 Non-Urgent Priority 4: Yes Criteria Met for Priority 4: pt reports leaking fluid Disposition - Disposition OB Disposition: Discharge to home Discharge Date: 01/19/22 Discharge Time: 15:30 I agree with the RN Medical Screening Exam: Yes Case reviewed; plan agreed upon as documented in EMR&OBIX.: Yes Diagnosis: FALSE LABOR AT OR AFTER 37 COMPLETED WEEKS OF GESTATION
== END 2022-01-19 15:30 | disposition home or self-care (01) ==
LOC: FBPOP 14:58
PROVIDERS: ATTEND Obstetrics & Gynecology
DX: O47.1 False labor at or after 37 completed weeks of gestation (principal); Z3A.38 38 weeks gestation of pregnancy; Z91.013 Allergy to seafood; Z91.030 Bee allergy status; Z91.041 Radiographic dye allergy status; Z91.011 Allergy to milk products
CPT/HCPCS: 59025; 84112; G0463; 99213

== ENCOUNTER 2022-01-21 06:00 | Inpatient (IN) | payer BC, OTHER ==
--- NOTE | 2022-01-20 16:41 | P.HPOB ---
History of Present Illness H&P Date: 01/20/22 Chief Complaint: Requested induction of labor This patient is a pleasant 21 yr EDC 01/28/[birth year]22 estimated gestational age 39 0/7 weeks who presents to L&D for requested induction of labor. care was initially by Dr. Galarza, however transferred to nd. care was complicated by a positive FFN at 30wks and was 1 cm dilated. Patient also has developed COVID x 2. She had some variable decels on testing and I did refer to MFM which concluded all was normal. Patient is now uncomfortable and requesting induction of labor. Review of Systems Menstruation: Reports as per HPI Past Medical History Past Medical History: Asthma Additional Past Medical History / Comment(s): Pt reports exercise induced asthma, states she used to have an inhaler but not anymore History of Any Multi-Drug Resistant Organisms: None Reported Past Surgical History: Adenoidectomy, Tonsillectomy Additional Past Surgical History / Comment(s): wisdom tooth removal Past Anesthesia/Blood Transfusion Reactions: No Reported Reaction Past Psychological History: No Psychological Hx Reported Smoking Status: Former smoker Past Alcohol Use History: None Reported, Unable to Obtain Past Drug Use History: None Reported - Past Family History Mother Family Medical History: No Reported History Father Family Medical History: No Reported History Additional Family Medical History / Comment(s): Pt reports grandma has history of lung and heart disease Medications and Allergies Home Medications Medication Instructions Recorded Confirmed Type Pnv No.95/Ferrous Fum/Folic AC 1 tab PO DAILY 11/20/21 01/19/22 History [ Multivitamin Tablet] Allergies Allergy/AdvReac Type Severity Reaction Status Date / Time shellfish derived Allergy Severe Anaphylaxis Verified 01/19/22 14:59 venom-honey bee Allergy Severe Anaphylaxis Verified 01/19/22 14:59 [bee venom (honey bee)] Iodinated Contrast Media Allergy Unknown Verified 01/19/22 14:59 [Iodinated Contrast- Oral and IV Dye] lactose AdvReac Intermediate Nausea & Verified 01/19/22 14:59 Vomiting & Diarrhea milk AdvReac Intermediate Nausea Verified 01/19/22 14:59 Exam - OBG Physical Exam Abdomen: bowel sounds normal, no diffuse tenderness, no bruit present, no guarding noted, no hepatomegaly, no splenomegaly, no mass Vulva: both: normal Vagina: normal moisture, no discharge Cervix: no lesion (3cm per recent visit to L&D), no discharge Uterus: enlarged Results labs: O positive, Rubella Immune, [id number] neg, received Rhogam on 11/20/2021. GBS positive. Ultrasounds have show normal growth and anatomy Assessment and Plan Assessment: This is a pleasant 21 yr EDC 01/28/2022 estimated gestational age 39 weeks who presents to L&D for requested induction of labor. Positive GBS. Plan is antibiotic prophylaxis, pitocin induction of labor per protocol, and anticipate normal vaginal delivery. (1) 39 weeks gestation of Status: Acute Code(s): Z3A.39 - 39 WEEKS GESTATION OF SNOMED Code(s): 09546825 (2) Group beta Strep positive Status: Acute Code(s): B95.1 - STREPTOCOCCUS, GROUP B, CAUSING DISEASES CLASSD [facility] SNOMED Code(s): 861636496 (3) Elective induction of labor planned Status: Acute Code(s): EGS9667 - SNOMED Code(s): 924288077
[2022-01-21] MEDS ORDERED: CARBOPROST TROMETHAMINE 250 MCG/ML 1 ML AMP IM PRN (06:15)
[2022-01-21] MEDS ORDERED: AMPICILLIN 2,000 MG in SODIUM CHLORIDE 0.9% 100 ML IVPB STA (06:15)
[2022-01-21] MEDS ORDERED: OXYTOCIN 10 UNIT/ML 1 ML VIAL IM PRN (06:15)
[2022-01-21] MEDS ORDERED: TERBUTALINE 1 MG/ML VIAL SQ PRN (06:15)
[2022-01-21] MEDS ORDERED: LIDOCAINE 1% (PF) 10 MG/ML (30 ML SDV) SQ PRN (06:15)
[2022-01-21] MEDS ORDERED: OXYTOCIN 30 UNITS/500 ML NS 30 UNIT in SALINE 1 500ML.BAG IV SCH ×2 (06:15→13:04)
[2022-01-21] MEDS ORDERED: METHYLERGONOVINE 0.2 MG/ML 1 ML AMP IM PRN (06:15)
[2022-01-21 06:34] LABS: Basophils # (A) 0.1 k/uL (0-0.2); Basophils % (A) 1 %; Eosinophils # (A) 0.2 k/uL (0-0.7); Eosinophils % (A) 2 %; HCT 34.8 % (34.0-46.0); HGB 11.7 gm/dL (11.4-16.0); Lymphocytes # (A) 2.3 k/uL (1.0-4.8); Lymphocytes % (A) 24 %; MCH 28.8 pg (25.0-35.0); MCHC 33.6 g/dL (31.0-37.0); MCV 85.8 fL (80.0-100.0); Mean Platelet Volume 8.1; Monocytes # (A) 0.7 k/uL (0-1.0); Monocytes % (A) 8 %; Neutrophils # (A) 6.1 k/uL (1.3-7.7); Neutrophils % (A) 63 %; Platelet Count 266 k/uL (150-450); RBC 4.06 m/uL (3.80-5.40); RDW 13.8 % (11.5-15.5); WBC 9.6 k/uL (4.0-11.0)
[2022-01-21] MEDS: LACTATED RINGERS 1,000 ML IV SCH ×3 (06:45→11:11)
[2022-01-21] MEDS ORDERED: BUTORPHANOL 1 MG/ML 1 ML VIAL IV PRN (08:20)
[2022-01-21] MEDS ORDERED: ROPIVACAINE 5MG/ML 20ML VIAL ONE (09:35)
[2022-01-21] MEDS ORDERED: SODIUM CHLORIDE 0.9% 100 ML BAG ONE (09:35)
[2022-01-21] MEDS ORDERED: fentaNYL (PF) 50 MCG/ML 5 ML AMP ONE (09:35)
[2022-01-21] MEDS ORDERED: AMPICILLIN 1,000 MG in SODIUM CHLORIDE 0.9% 50 ML IVPB SCH (10:15)
--- NOTE | 2022-01-21 12:45 | P.PROBDLV ---
Vaginal Delivery Note - . Vaginal Delivery Note: Normal vaginal delivery viable male infant Apgars 9 and 10 at 1231 hrs. Please see dictated H&P for intimate details of this patient's admission. Brief summary this pleasant 21-year-old 1 para 0 female 39-0/7 weeks gestation who is admitted to labor and delivery for requested induction of labor. Patient a positive group B strep and is given IV antibiotics on admission. She has Pitocin induction of labor and artificial rupture membranes at 3 cm dilated for clear fluid. Labor progresses quickly she gets one dose of Stadol and then an epidural for pain control. Patient gets to complete pushes approximately 3 times pushes the head to the perineum. Posterior perineum is supported we have controlled delivery of the 's head over the intact perineum. Mouth and nares are bulb suctioned. There is no evidence of a nuchal cord. With gentle downward traction we then have deliver the anterior and posterior shoulder and rest this infant's body. This is a vigorous viable male infant Apgars are 9 and 10 delivery time was 1231 hrs. After delivery of the infant the umbilical cord is allowed to quit pulsing doubly clamped and cut. The placenta is then spontaneously delivered intact. Inspection of the perineum shows bilateral periurethral lacerations that did not require repair. Estimated blood loss is 100 mL. Infant and mother stable delivery room. Cord is obtained for Rh status
[2022-01-21] MEDS ORDERED: BENZOCAINE/MENTHOL SPRAY 1 GM/SPRAY AEROSOL TOPICAL PRN (13:04)
[2022-01-21] MEDS ORDERED: ZOLPIDEM 5 MG TAB PO PRN (13:04)
[2022-01-21] MEDS ORDERED: diphenhydrAMINE 50 MG/ML 1 ML VIAL IVP PRN (13:04)
[2022-01-21] MEDS ORDERED: HYDROCORTISONE 2.5% RECTAL CREAM 30 GM TUBE RECTAL PRN (13:04)
[2022-01-21] MEDS ORDERED: LANOLIN CREAM 5 GM TUBE TOPICAL PRN (13:04)
[2022-01-21] MEDS ORDERED: Rhogam IMMUNE GLOBULIN 1,500 UNIT/1 ML IM ONE (13:04)
[2022-01-21] MEDS ORDERED: SIMETHICONE 80 MG CHEWABLE PO PRN (13:04)
[2022-01-21] MEDS ORDERED: bisacodyL 10 MG SUPP RECTAL PRN (13:04)
[2022-01-21] MEDS ORDERED: diphenhydrAMINE 25 MG CAP PO PRN (13:04)
[2022-01-21] MEDS: IBUPROFEN 600 MG TAB PO PRN (13:21)
[2022-01-21] MEDS: SENNOSIDES-DOCUSATE SODIUM 1 EACH TAB PO SCH ×2 (14:36→19:46)
[2022-01-22] MEDS: IBUPROFEN 600 MG TAB PO PRN ×3 (00:08→22:49)
--- NOTE | 2022-01-22 05:35 | P.PNOBGVD ---
Subjective - Subjective Patient reports: Reports appetite normal, Reports voiding normally, Reports pain well controlled, Reports ambulating normally : doing well Objective - Latest Vital Signs Latest vital signs: Vital Signs Temp Pulse Resp BP Pulse Ox 01/22/22 00:00 97.8 F 73 16 115/63 99 01/21/22 20:00 98.7 F 88 16 112/74 01/21/22 16:00 98.3 F 82 18 101/51 96 01/21/22 14:45 97.7 F 89 18 119/71 98 01/21/22 14:15 92 18 121/60 98 01/21/22 13:45 98.1 F 65 18 101/62 100 01/21/22 13:30 67 18 115/66 96 01/21/22 13:12 97.6 F 72 18 114/61 98 01/21/22 12:54 97.7 F 76 18 118/82 100 01/21/22 12:45 97.7 F 98 18 132/70 01/21/22 06:14 96.8 F L 65 17 110/73 99 Intake and Output 01/21/22 01/21/22 01/22/22 14:59 22:59 06:59 Output Total 399 Balance -399 Output: Estimated Blood Loss 200 Output, Quantitative 199 Blood Loss Other: # Voids 1 1 2 - Exam Lungs: bilateral: normal Chest: Normal S1, Normal S2 Extremities: Present: normal Abdomen: Present: normal appearance, soft Uterus: Present: normal, firm Assessment and Plan Assessment: day #1. Patient is resting without complaints wishes to go home. Vital signs are stable she's afebrile. Uterus is firm nontender and she is having normal lochia. Impression is a normal course. Plan is to continue routine care discharge home later today. (1) 39 weeks gestation of Current Visit: No Status: Acute Code(s): Z3A.39 - 39 WEEKS GESTATION OF SNOMED Code(s): 30790080 (2) Group beta Strep positive Current Visit: No Status: Acute Code(s): B95.1 - STREPTOCOCCUS, GROUP B, [facility]USING [facility] Code(s): 502884692 (3) Elective induction of labor planned Current Visit: No Status: Acute Code(s): BHK0986 - SNOMED Code(s): 506777231
--- NOTE | 2022-01-22 05:38 | P.DS ---
Providers Date of admission: 01/21/22 06:06 Expected date of discharge: 01/22/22 Attending physician: Pablo Webb Primary care physician: Stated None - Discharge Diagnosis(es) (1) 39 weeks gestation of Current Visit: No Status: Acute (2) Group beta Strep positive Current Visit: No Status: Acute (3) Elective induction of labor planned Current Visit: No Status: Acute Hospital Course: Please see dictated H&P for intimate details of this patient's admission. Brief summary this pleasant 21-year-old 1 para 0 female 39-0/7 weeks gestation admitted to labor and delivery for elective induction of labor. Patient is admitted she is uncomplicated induction of labor quickly goes on have a vaginal delivery viable male . Please see dictated delivery note. day 1 patient without complaints wishes to go home. Patient's felt stable for discharge home follow up with me in 6 weeks. Procedures: Induction of labor and normal vaginal delivery Patient Condition at Discharge: Good Plan - Discharge Summary New Discharge Prescriptions: New Ibuprofen [Motrin] 600 mg PO Q6HR PRN #30 tab PRN Reason: Mild Pain (Scale 1 To 3) No Action Pnv No.95/Ferrous Fum/Folic AC [ Multivitamin Tablet] 1 tab PO DAILY Discharge Medication List Pnv No.95/Ferrous Fum/Folic AC [ Multivitamin Tablet] 1 tab PO DAILY 11/20/21 [History] Ibuprofen [Motrin] 600 mg PO Q6HR PRN #30 tab 01/22/22 [Rx] Follow up Appointment(s)/Referral(s): Pablo Webb MD [STAFF PHYSICIAN] - 03/03/22 10:30 am Patient Instructions/Handouts: Vaginal Delivery (DC) Activity/Diet/Wound Care/Special Instructions: No intercourse or anything per vagina for 6 weeks. Please call if any fever, chills, excessive vaginal bleeding, and/or abdominal pain Discharge Disposition: HOME SELF-CARE
[2022-01-22 07:32] LABS: Basophils # (A) 0.1 k/uL (0-0.2); Basophils % (A) 1 %; Eosinophils # (A) 0.2 k/uL (0-0.7); Eosinophils % (A) 2 %; HCT 32.3 % (34.0-46.0); HGB 10.6 gm/dL (11.4-16.0); Lymphocytes # (A) 2.2 k/uL (1.0-4.8); Lymphocytes % (A) 22 %; MCH 28.6 pg (25.0-35.0); MCHC 32.9 g/dL (31.0-37.0); MCV 86.9 fL (80.0-100.0); Mean Platelet Volume 8.7; Monocytes # (A) 0.7 k/uL (0-1.0); Monocytes % (A) 7 %; Neutrophils # (A) 6.7 k/uL (1.3-7.7); Neutrophils % (A) 67 %; Platelet Count 204 k/uL (150-450); RBC 3.72 m/uL (3.80-5.40); RDW 13.7 % (11.5-15.5)
[2022-01-22] MEDS: SENNOSIDES-DOCUSATE SODIUM 1 EACH TAB PO SCH ×2 (08:39→22:51)
[2022-01-22] MEDS: ACETAMINOPHEN TAB 325 MG TAB PO PRN (10:13)
[2022-01-23] MEDS: ACETAMINOPHEN TAB 325 MG TAB PO PRN (04:02)
[2022-01-23 09:09] VITALS: BP 106/66; PULSE 79; RESP 20; TEMP 98.1
[2022-01-23] MEDS: SENNOSIDES-DOCUSATE SODIUM 1 EACH TAB PO SCH (09:10)
== END 2022-01-23 16:30 | disposition home or self-care (01) | DRG 807 ==
LOC: 4FBP 06:06
PROVIDERS: ADMIT Obstetrics & Gynecology; ATTEND Obstetrics & Gynecology
PROC: 3E0R3NZ Introduction of Analgesics, Hypnotics, Sedatives into Spinal Canal, Percutaneous Approach (ICD-10-PCS; principal; 2022-01-21)
PROC: 10E0XZZ Delivery of Products of Conception, External Approach (ICD-10-PCS; principal; 2022-01-21)
PROC: 00HU33Z Insertion of Infusion Device into Spinal Canal, Percutaneous Approach (ICD-10-PCS; principal; 2022-01-21)
PROC: 3E033VJ Introduction of Other Hormone into Peripheral Vein, Percutaneous Approach (ICD-10-PCS; principal; 2022-01-21)
PROC: 10907ZC Drainage of Amniotic Fluid, Therapeutic from Products of Conception, Via Natural or Artificial Opening (ICD-10-PCS; principal; 2022-01-21)
DX: O99.52 Diseases of the respiratory system complicating childbirth (principal); Z37.0 Single live birth; O71.82 Other specified trauma to perineum and vulva; O99.824 Streptococcus B carrier state complicating childbirth; J45.909 Unspecified asthma, uncomplicated; Z3A.39 39 weeks gestation of pregnancy; Z87.891 Personal history of nicotine dependence; Z90.89 Acquired absence of other organs; Z28.310 Unvaccinated for COVID-19; Z91.030 Bee allergy status; Z91.041 Radiographic dye allergy status; Z91.011 Allergy to milk products; Z91.013 Allergy to seafood
CPT/HCPCS: 85025; 85461; 86850; 86870; 86880; 86900; 86901; 86902

== ENCOUNTER 2024-08-12 08:18 | Emergency (ER) | payer BC ==
[2024-08-12 08:32] VITALS: PULSE 81
--- NOTE | 2024-08-12 08:50 | XR ---
EXAMINATION TYPE: XR chest 2V DATE OF EXAM: 08/12/2024 COMPARISON: 11/22/2017 HISTORY: Cough TECHNIQUE: Frontal and lateral views of the chest are obtained. FINDINGS: There is no focal air space opacity, pleural effusion, or pneumothorax seen. The cardiac silhouette size is within normal limits. The osseous structures are intact. IMPRESSION: No acute cardiopulmonary process. [facility], , 08/12/2024 8:48 AM
[2024-08-12] MEDS: AZITHROMYCIN 500 MG TAB PO STA (10:09)
[2024-08-12] MEDS: predniSONE 20 MG TAB PO STA (10:10)
--- NOTE | 2024-08-12 10:20 | ED ---
General Adult HPI - General Chief complaint: Upper Respiratory Infection Stated complaint: cough Time Seen by Provider: 08/12/24 08:30 Source: patient, RN notes reviewed, old records reviewed Mode of arrival: ambulatory Limitations: no limitations - History of Present Illness Initial comments: Patient is a 24-year-old female who presents emergency department complaining of cough, congestion for 3 weeks. Has a history of sports induced asthma. Has attempted use of her inhaler at home which does improve her symptoms mildly. No known fevers or chills. All of her children are sick. Similar complaints. Denies sore throat. Endorses generalized chest discomfort with coughing. Denies fevers. Endorses rhinorrhea and congestion. Presents for further evaluation at this time. Concerned she may have a viral illness or other URI symptoms. - Related Data Home Medications Medication Instructions Recorded Confirmed Pnv No.[id number]/Ferrous Fum/Folic AC 1 tab PO DAILY 11/20/21 01/21/22 [ Multivitamin Tablet] Previous Rx's Medication Instructions Recorded Ibuprofen [Motrin] 600 mg PO Q6HR PRN #30 tab 01/22/22 Albuterol Sulfate [Ventolin HFA] 1 - 2 puff INHALATION Q6H PRN #1 08/12/24 each Azithromycin [Zithromax] 250 mg PO DAILY 4 Days #4 tab 08/12/24 predniSONE [Deltasone] 40 mg PO DAILY 4 Days #8 tab 08/12/24 Allergies Allergy/AdvReac Type Severity Reaction Status Date / Time shellfish derived Allergy Severe Anaphylaxis Verified 08/12/24 08:32 venom-honey bee Allergy Severe Anaphylaxis Verified 08/12/24 08:32 [bee venom (honey bee)] Iodinated Contrast Media Allergy Unknown Verified 08/12/24 08:32 [Iodinated Contrast- Oral and IV Dye] lactose AdvReac Intermediate Nausea & Verified 08/12/24 08:32 Vomiting & Diarrhea milk AdvReac Intermediate Nausea Verified 08/12/24 08:32 Review of Systems ROS Statement: Those systems with pertinent positive or pertinent negative responses have been documented in the HPI. Review of Systems: CONST: Denies fever EYES: Denies blurry vision ENT: Endorses nasal congestion, cough C/V: Denies Chest pain RESP: Denies shortness of breath GI: Denies abdominal pain : Denies dysuria SKIN: Denies rash. MSK: Denies joint pain. NEURO: Denies headache ROS Other: All systems not noted in ROS Statement are negative. Past Medical History Past Medical History: Asthma Additional Past Medical History / Comment(s): Pt reports exercise induced asthma, states she used to have an inhaler but not anymore History of Any Multi-Drug Resistant Organisms: None Reported Past Surgical History: Adenoidectomy, Tonsillectomy Additional Past Surgical History / Comment(s): wisdom tooth removal Past Anesthesia/Blood Transfusion Reactions: No Reported Reaction Past Psychological History: No Psychological Hx Reported Smoking Status: Vaper Past Alcohol Use History: Occasional Past Drug Use History: None Reported - Past Family History Mother Family Medical History: No Reported History Father Family Medical History: No Reported History Additional Family Medical History / Comment(s): Pt reports grandma has history of lung and heart disease General Exam - General Exam Comments Initial Comments: General: Appears in no acute distress. HEAD: Normal with no signs of head trauma. EYES: PERRLA, EOMI, conjunctiva normal, no discharge. ENT: Hearing grossly intact, normal oropharynx. RESPIRATORY: Largely clear breath sounds bilaterally. With very mild central wheezing. No hypoxia. No increased work of breathing. C/V: Regular rate and rhythm. S1 and S2 auscultated, peripheral pulses 2+ and intact throughout ABD: Abd is soft, nontender, nondistended EXT: Normal range of motion, no obvious deformity SKIN: No rashes or lesions observed on exposed skin. NEURO: Alert and oriented x 4. Limitations: no limitations Course Vital Signs 08/12/24 08/12/24 08:30 10:26 Temperature 98.2 F 97.9 F Pulse Rate 81 81 Respiratory 20 18 Rate Blood Pressure 123/75 110/72 O2 Sat by Pulse 99 100 Oximetry Medical Decision Making - Medical Decision Making Was pt. sent in by a medical professional or institution (, PA, CONTACT LENS TECHNICIAN, urgent c are, hospital, or custodial...) When possible be specific @ -No Did you speak to anyone other than the patient for history (EMS, parent, family, police, friend...)? What history was obtained from this source @ -No Did you review nursing and triage notes (agree or disagree)? Why? @ -I reviewed and agree with nursing and triage notes Were old charts reviewed (outside hosp., previous admission, EMS record, old EKG, old radiological studies, urgent care reports/EKG's, custodial records)? Report findings @ -No old charts were reviewed Differential Diagnosis (chest pain, altered mental status, abdominal pain women, abdominal pain men, vaginal bleeding, weakness, fever, dyspnea, syncope, headache, dizziness, GI bleed, back pain, seizure, CVA, palpatations, mental health, musculoskeletal)? @ -COVID, flu, RSV, pneumonia. This list is not all inclusive. EKG interpreted by me (3pts min.). @ -As above X-rays interpreted by me (1pt min.). @ -Chest x-ray reveals no obvious acute cardiopulmonary process. CT interpreted by me (1pt min.). @ -None done U/S interpreted by me (1pt. min.). @ -None done What testing was considered but not performed or refused? (CT, X-rays, U/S, labs )? Why? @ -None What meds were considered but not given or refused? Why? @ -None Did you discuss the management of the patient with other professionals (professionals i.e. , PA, CONTACT LENS TECHNICIAN, lab, RT, psych nurse, social work therapist, sider mechanic, teacher, aoc director combat plans officer, business case analyst)? Give summary @ -No Was smoking cessation discussed for >3mins.? @ -No Was critical care preformed (if so, how long)? @ -No Were there social determinants of health that impacted care today? How? (Homelessness, low income, unemployed, alcoholism, drug addiction, transportation, low edu. Level, literacy, decrease access to med. care, assisted, rehab)? @ -No Was there de-escalation of care discussed even if they declined (Discuss DNR or withdrawal of care, Hospice)? DNR status @ -No What co-morbidities impacted this encounter? (DM, HTN, Smoking, COPD, CAD, Cancer, CVA, ARF, Chemo, Hep., AIDS, mental health diagnosis, sleep apnea, morbid obesity)? @ -None Was patient admitted / discharged? Hospital course, mention meds given and route, prescriptions, significant lab abnormalities, going to OR and other pertinent info. @ -Based on the patient's presentation and physical exam, presents emergency department with URI symptoms as well as some generalized rib discomfort ongoing for multiple weeks which she attributes to URI symptoms and coughing. Vital signs within acceptable limits. We will obtain viral swabs, chest x-ray, screening EKG. She was in agreement this plan. Chest x-ray unremarkable. EKG within acceptable limits. Viral swabs negative. I discussed results with patient. With her asthmatic history we will treat the patient for tracheobronchitis who provided with prednisone, albuterol inhaler, as well as azithromycin. Patient was in agreement this plan. Strict return precautions discussed. I instructed the patient to follow up with their PCP in the next 1-3 days. I explained that the patient should return to the emergency department if they experience any worsening symptoms. Strict return precautions were discussed with the patient. The patient expressed understanding of these instructions. I answered all questions that the patient had. The patient was discharged home in good condition with their prescriptions and follow up information. Undiagnosed new problem with uncertain prognosis? @ -No Drug Therapy requiring intensive monitoring for toxicity (Heparin, Nitro, Insulin, Cardizem)? @ -No Were any procedures done? @ -No Diagnosis/symptom? @ -Tracheobronchitis Acute, or Chronic, or Acute on Chronic? @ -Acute Uncomplicated (without systemic symptoms) or Complicated (systemic symptoms)? @ -Uncomplicated Side effects of treatment? @ -No Exacerbation, Progression, or Severe Exacerbation? @ -No Poses a threat to life or bodily function? How? (Chest pain, [place], [place], pneumonia, PE, COPD, DKA, ARF, appy, cholecystitis, CVA, Diverticulitis, Homicidal, Suicidal, threat to staff... and all critical care pts) @ -Unlikely - Lab Data Lab Results 08/12/24 Range/Units 08:48 Influenza Type A (PCR) Not Detected (Not Detectd) Influenza Type B (PCR) Not Detected (Not Detectd) RSV (PCR) Not Detected (Not Detectd) SARS-CoV-2 (PCR) Not Detected (Not Detectd) - EKG Data -: EKG Interpreted by Me EKG Comments: 12-lead Electrocardiogram Interpretation Note EKG was reviewed and interpreted by myself. 12-lead ECG performed at 1006 is interpreted by me as revealing normal sinus rhythm at a rate of 76 beats per minute. [place] is normal. VT interval is 145 ms, QRS is 89 ms, QTc is 388 ms.. There were no ST or T wave abnormalities to suggest myocardial ischemia or injury. R wave progression across the precordium was satisfactory. By my interpretation this EKG is non-diagnostic for acute ischemia. Disposition Clinical Impression: Tracheobronchitis Disposition: HOME SELF-CARE Condition: Good Instructions (If sedation given, give patient instructions): Acute Bronchitis (ED) Prescriptions: predniSONE [Deltasone] 40 mg PO DAILY 4 Days #8 tab Albuterol Sulfate [Ventolin HFA] 1 - 2 puff INHALATION Q6H PRN #1 each PRN Reason: dyspnea Azithromycin [Zithromax] 250 mg PO DAILY 4 Days #4 tab Is patient prescribed a controlled substance at d/c from ED?: No Referrals: Eugenia Tavares DO [Primary Care Provider] - 1-2 days Time of Disposition: 10:15
[2024-08-12 10:28] VITALS: BP 110/72; RESP 18; TEMP 97.9
== END 2024-08-12 10:28 | disposition home or self-care (01) ==
LOC: EC 08:18
DX: J40 Bronchitis, not specified as acute or chronic (principal); F17.290 Nicotine dependence, other tobacco product, uncomplicated; Z91.013 Allergy to seafood; Z91.030 Bee allergy status; Z91.041 Radiographic dye allergy status; Z91.011 Allergy to milk products
CPT/HCPCS: 87636; 71046; 99283; J7512